=== PATIENT | male | born 1955 | race Two or more races ===

== ENCOUNTER 2023-03-13 09:22 | Emergency (ER) | payer OTHER ==
[~2023-03-13] VITALS: Ht 172.7 cm; Wt 77.9 kg
[2023-03-13 10:00] VITALS: BP 128/79
[2023-03-13] MEDS ORDERED: TETRACAINE HCL 0.5% OPTH(EYE) SOLN 4ML LEFTEYE ONE (10:45)
[2023-03-13] MEDS ORDERED: FLUORESCEIN SOD OPTH TEST STRIP OP ONE (10:45)
[2023-03-13] MEDS ORDERED: CIP03OS LEFTEYE (11:00)
== END 2023-03-13 11:19 | disposition home or self-care (01) ==
LOC: ER 09:22
DX: S05.02XA Injury of conjunctiva and corneal abrasion without foreign body, left eye, initial encounter (principal); X58.XXXA Exposure to other specified factors, initial encounter; Y93.89 Activity, other specified; Y92.89 Other specified places as the place of occurrence of the external cause; Y99.8 Other external cause status